=== PATIENT | female | born 1985 | race Caucasian/White ===

== ENCOUNTER → 2018-08-28 | Outpatient (CLI) | payer BC ==
[2018-08-28 11:23] LABS: Glucose 3 Hour, Gest 63 mg/dL
== END | disposition home or self-care (01) ==
LOC: LABWHC1 07:23
PROVIDERS: ATTEND Obstetrics & Gynecology
DX: O99.810 Abnormal glucose complicating pregnancy (principal); Z3A.00 Weeks of gestation of pregnancy not specified
CPT/HCPCS: 36415; 82951; 82952

== ENCOUNTER 2018-09-24 15:54 | Outpatient (CLI) | payer BC ==
[2018-09-24 17:07] LABS: Appearance,Urine Clear (Clear); Bilirubin,Urine Negative (Negative); Blood,Urine Negative (Negative); Color,Urine Light Yellow; Glucose,Urine (UA) Negative (Negative); Ketones,Urine Trace (Negative); Leukocyte Esterase,Urine Negative (Negative); Nitrite,Urine Negative (Negative); PH, Urine 6.5 (5.0-8.0); Protein,Urine Negative (Negative); Specific Gravity,Urine 1.007 (1.001-1.035); Urobilinogen,Urine <2.0 mg/dL (<2.0)
[2018-09-24 20:01] VITALS: BP 134/77; PULSE 105; RESP 16; TEMP 97.8
--- NOTE | 2018-10-22 09:16 | P.MSEPDOC ---
Presenting Problems - Arrival Data Date of Arrival on Unit: 09/24/18 Time of Arrival on Unit: 16:00 Mode of Transport: Ambulatory - Complaint OB-Reason for Admission/Chief Complaint: Possible Onset of Labor Comment: hx of previous c/s Medical History - Information : 2 Para: 1 Term: 1 : 0 Abortions: Spontaneous or Elective: 0 Number of Living Children: 1 - Gestational Age Gestational Age by CHERRY (wks/days): 32 Weeks and 2 Days Review of Systems - Review of Systems Constitutional: No problems Breast: No problems ENT: No problems Cardiovascular: No problems Respiratory: No problems Gastrointestinal: No problems Genitourinary: No problems Musculoskeletal: No problems Neurological: No problems Skin: No problems Vital Signs - Temperature Temperature: 97.8 F Temperature Source: Temporal Artery Scan - Pulse Right Apical Pulse Rate: 105 Pulse Assessment Method: Auscultation - Respirations Respiratory Rate: 16 Oxygen Delivery Method: Room Air - Blood Pressure Right Arm Blood Pressure: 134/77 Blood Pressure Mean: 96 Blood Pressure Source: Automatic Cuff Medical Screen Scoring (Pre) - Cervical Exam Dilation: 0 cm = 0 Effacement: Exam Deferred Membranes: Intact - Uterine Contractions Frequency: > 5 minutes apart = 1 Duration: N/A Intensity: N/A - Maternal Vital Signs Maternal Temperature: N/A Maternal Blood Pressure: N/A Signs of Preeclampsia: N/A - Pain Assessment Pain Location and Character: Lower, Abdomen Pain Scale Used: Numeric (1 - 10) Pain Intensity: 6 Pain Description: Cramping, Pressure Pain Frequency: Intermittent - Assessment Baseline FHR: 140 Heart Rate - NICHD Category: Category I (Normal) = 0 NST: Reactive Position: N/A Station: N/A - Total Score Total Score (Pre): 1 Physician Notification (Pre) - Physician Notified Physician Notified Date: 09/24/18 Physician Notified Time: 17:15 Physician/Practitioner Notifed:: hung New Order Received: Yes Disposition - Disposition OB Disposition: Physician follow up in office, Discharge to home, Written follow up instructions reviewed Discharge Date: 09/24/18 Discharge Time: 17:38 I agree with the RN Medical Screening Exam: Yes Risk & Benefit of care provided described in d/c instruction: Yes Diagnosis: FALSE LABOR BEFORE 37 COMPLETED WEEKS OF GEST, THIRD TRI
== END 2018-09-24 17:35 | disposition home or self-care (01) ==
LOC: FBPOP 15:54
PROVIDERS: ATTEND Obstetrics & Gynecology
DX: O47.03 False labor before 37 completed weeks of gestation, third trimester (principal); Z3A.32 32 weeks gestation of pregnancy
CPT/HCPCS: 59025; 81003; 99213

== ENCOUNTER 2018-11-12 08:47 | Inpatient (IN) | payer BC, OTHER ==
[2018-11-08 16:02] VITALS: BMI 31.9
[2018-11-12] MEDS ORDERED: LIDOCAINE 0.5% (PF) 5 MG/ML (50 ML SDV) SQ PRN (10:12)
[2018-11-12] MEDS ORDERED: OXYTOCIN 10 UNIT/ML 1 ML VIAL IM PRN (10:12)
[2018-11-12] MEDS ORDERED: TERBUTALINE 1 MG/ML VIAL SQ PRN (10:12)
[2018-11-12] MEDS ORDERED: ceFAZolin IN SWFI 2 GM/20 ML SYRINGE IVP ONE (10:12)
[2018-11-12] MEDS ORDERED: CARBOPROST TROMETHAMINE 250 MCG/ML 1 ML AMP IM PRN (10:12)
[2018-11-12] MEDS ORDERED: METHYLERGONOVINE 0.2 MG/ML 1 ML AMP IM PRN (10:12)
[2018-11-12] MEDS ORDERED: CITRIC ACID-SODIUM CITRATE 15 ML CUP PO ONE (10:40)
[2018-11-12] MEDS: LACTATED RINGERS 1,000 ML IV SCH ×2 (10:41→14:56)
[2018-11-12 11:02] LABS: Basophils # (A) 0.1 k/uL (0-0.2); Basophils % (A) 1 %; Eosinophils # (A) 0.1 k/uL (0-0.7); Eosinophils % (A) 1 %; HCT 38.3 % (34.0-46.0); HGB 12.6 gm/dL (11.4-16.0); Lymphocytes # (A) 2.1 k/uL (1.0-4.8); Lymphocytes % (A) 20 %; MCH 27.4 pg (25.0-35.0); MCHC 32.8 g/dL (31.0-37.0); MCV 83.3 fL (80.0-100.0); Mean Platelet Volume 7.5; Monocytes # (A) 0.4 k/uL (0-1.0); Monocytes % (A) 3 %; Neutrophils # (A) 7.7 k/uL (1.3-7.7); Neutrophils % (A) 74 %; Platelet Count 273 k/uL (150-450); RBC 4.59 m/uL (3.80-5.40); RDW 15.6 % (11.5-15.5); WBC 10.5 k/uL (3.8-10.6)
[2018-11-12] MEDS ORDERED: ePHEDrine SULFATE/0.9% NACL/PF 50 MG/5 ML SYRINGE IV ONE (11:36)
[2018-11-12] MEDS ORDERED: NALBUPHINE 10 MG/ML (1 ML AMP) ONE (11:36)
[2018-11-12] MEDS ORDERED: MORPHINE SULFATE (PF) 0.3 MG/0.3 ML SYR ONE (11:36)
[2018-11-12] MEDS ORDERED: DEXAMETHASONE SOD PHOS (MDV) 100 MG/10 ML VIAL ONE (11:36)
[2018-11-12] MEDS ORDERED: ONDANSETRON 4 MG/2 ML VIAL ONE (11:36)
[2018-11-12] MEDS ORDERED: OXYTOCIN 10 UNIT/ML 1 ML VIAL ONE (11:36)
[2018-11-12] MEDS ORDERED: LACTATED RINGERS 1,000 ML BAG IV ONE (11:36)
[2018-11-12] MEDS ORDERED: KETOROLAC 30 MG/ML 1 ML VIAL ONE (11:36)
--- NOTE | 2018-11-12 11:45 | P.HPOB ---
History of Present Illness H&P Date: 11/12/18 Chief Complaint: Here for elective repeat section, and tubal ligation. This is a 34-year-old white female 3 para 1011 EDC 11/17/2018 at 39-2/7 weeks' gestation. Patient presents today for repeat low transverse section and tubal ligation. She has been offered the option of and declined. Fetus is been active throughout the . She denies fluid leakage or vaginal bleeding, no uterine contractions. Past medical history is significant for -induced hypertension with the prior . Blood pressure is normal at this time. Past surgical history bunionectomy, section for failure to progress in the past, D&C, tonsillectomy. Current medications vitamins daily. ALLERGIES none known. Family history significant for diabetes. Social history patient is a former smoker of tobacco, denies alcohol or drug use. She is now . They're of the baby is present and participating. Obstetric history blood type is O+, rubella status immune. VDRL testing, urine culture, hepatitis B surface antigen, HIV testing, gonorrhea and chlamydia cultures all negative. Group B strep cultures negative. One-hour Glucola 145, three-hour GTT within normal limits. On exam this is a pleasant white female who is 5 foot 5 inches, approximately 200 pounds, vital signs are stable and she is afebrile. The general physical exam is within normal limits. The extremities reveal trace edema. Abdomen is obviously gravid, fundal height 37 cm, vertex presentation by Shad's maneuvers. Cervix is long thick and closed. heart rate is consistent with reactive NST. Impression: 39-2/7 weeks intrauterine , here for repeat low transverse section and tubal ligation. Patient declining option of . All signs at this time reassuring. Plan: We'll proceed with repeat low transverse section with tubal ligation utilizing Filshie clips. The risks benefits and alternatives of this plan have been discussed with the patient in detail and she has voiced complete understanding. Review of Systems Constitutional: Reports as per HPI Past Medical History Past Medical History: No Reported History Additional Past Medical History / Comment(s): hx of heart murmur History of Any Multi-Drug Resistant Organisms: None Reported Past Surgical History: Adenoidectomy, Section, Orthopedic Surgery, Tonsillectomy Additional Past Surgical History / Comment(s): bunion sx bernardo feet Past Anesthesia/Blood Transfusion Reactions: No Reported Reaction Past Psychological History: No Psychological Hx Reported Smoking Status: Former smoker Past Alcohol Use History: None Reported Additional Past Alcohol Use History / Comment(s): smoked pre- less than 1/2ppd from teens Past Drug Use History: None Reported - Past Family History Mother History Unknown: Yes Family Medical History: Diabetes Mellitus Medications and Allergies Home Medications Medication Instructions Recorded Confirmed Type Pnv,Calcium 72/Iron/Folic Acid 1 each PO DAILY 09/24/18 11/12/18 History [ Plus Tablet] Allergies Allergy/AdvReac Type Severity Reaction Status Date / Time adhesive AdvReac Rash/Hives Verified 11/12/18 10:11 Exam Vital Signs Temp Pulse Resp BP Pulse Ox 11/12/18 10:10 97.3 F L 101 H 16 134/83 96 See dictation under HPI please Results Result Diagrams: 11/12/18 10:20 Abnormal Lab Results - Last 24 Hours (Table) 11/12/18 Range/Units 10:20 RDW 15.6 H (11.5-15.5) % Assessment and Plan Assessment: 39-2/7 weeks intrauterine , here for repeat low transverse section and tubal ligation. Plan: We will proceed as above. Anesthesia and nursing staff present and aware. All questions answered. Time with Patient: Less than 30
[2018-11-12] MEDS ORDERED: ZOLPIDEM 5 MG TAB PO PRN (12:30)
[2018-11-12] MEDS ORDERED: METOCLOPRAMIDE 5 MG/ML 2 ML VIAL IVP PRN (12:30)
[2018-11-12] MEDS ORDERED: NALOXONE 0.4 MG/ML 1 ML VIAL IV PRN (12:30)
[2018-11-12] MEDS ORDERED: diphenhydrAMINE 50 MG/ML 1 ML VIAL IVP PRN ×2 (12:30)
[2018-11-12] MEDS ORDERED: diphenhydrAMINE 50 MG CAP PO PRN (12:30)
[2018-11-12] MEDS ORDERED: ACETAMINOPHEN TAB 325 MG TAB PO PRN (12:30)
[2018-11-12] MEDS ORDERED: HYDROcodone/APAP 5-325MG 1 EACH TAB PO PRN (12:30)
[2018-11-12] MEDS ORDERED: SIMETHICONE 80 MG CHEWABLE PO PRN (12:30)
[2018-11-12] MEDS ORDERED: LACTATED RINGERS 1,000 ML IV SCH (12:30)
[2018-11-12] MEDS ORDERED: diphenhydrAMINE 25 MG CAP PO PRN (12:30)
[2018-11-12] MEDS ORDERED: ONDANSETRON 4 MG/2 ML VIAL IVP PRN (12:30)
--- NOTE | 2018-11-12 12:31 | P.OP ---
Date of Procedure: 11/12/18 Preoperative Diagnosis: 39-2/7 weeks intrauterine , previous section declining , undesired fertility Postoperative Diagnosis: Same. Very thin lower uterine segment. Nuchal cord 1. Liveborn female infant. Procedure(s) Performed: Repeat low transverse section, tubal ligation with Filshie clips Anesthesia: spinal Surgeon: Reba Nix Fixer Boarding Room #1: Shreyas Baldwin Estimated Blood Loss (ml): 600 IV fluids (ml): 1,400 Urine output (ml): 200 Pathology: none sent Condition: stable Disposition: PACU Description of Procedure: Patient is brought to the operating room where a spinal analgesia is administered without difficulty. She's placed in the dorsal supine position, with left lateral uterine displacement. Antibiotics have been given. The appropriate timeout was performed to assure proper patient and procedural identification. The abdomen is prepped and draped in usual sterile fashion. Analgesia is checked and noted to be adequate. A repeat low transverse skin incision is made in this is carried down through the subcutaneous tissue which is approximately 2 cm in depth. Fascia is isolated, scored, and extended bilaterally with curved Chu scissors. The peritoneum is entered. The bladder is noted to be high on the lower uterine segment, this was carefully taken down with Metzenbaum scissors. Bladder flap is placed over the dome of the bladder, and all times the bladder is Well from the operative field to avoid bladder and/or ureteral injury. The lower uterine segment is extremely thin, hair continue seen through the incision floating in the fluid. A scalpel is used in a repeat low transverse uterine incision is made. Fluid was clear. Infant's head is delivered occiput anterior. There was a nuchal cord 1 that was easily reduced. The oropharynx, nasopharynx, and external nares are all bulb suctioned on the perineal body. Patient is officially delivered of a liveborn female at 1156 hrs. Umbilical cord is doubly clamped and ligated, she is handed to waiting nurses for evaluation where scores of 9 and 10 at one and 5 minutes respectively are given. Cord blood is sent to the lab for evaluation. Placenta is delivered manually, it is inspected and noted to be intact with trivascular cord at 1157 hours. The uterus is then massaged and oxytocin is given. Uterus is externalized and swept clean with a sterile s ponge to avoid any retained products of conception. The uterus is closed in one-step full-thickness fashion for excellent reapproximation. Bilateral tubes and ovaries are normal to inspection. Filshie clips are placed in the isthmic portion of both tubes, with care to traverse the entire diameter of the tubes into the mesal salpinx. The abdomen was suctioned with guard. Uterus is gently placed back into the abdominal cavity. Bilateral gutters are inspected and cleaned. Peritoneum is allowed to close by secondary intention. Fascia is closed in a running stitch of 0 Vicryl with over ligation in the midline. Subcutaneous tissue is irrigated, noted to be clean and dry. It is reapproximated with 2-0 Vicryl in a running fashion. 4-0 undyed Monocryl issues for final subcuticular closure of the skin. Mastisol and Steri-Strips are applied. Dressing is applied. Uterus is massaged for a small amount of lochia.. Pad is placed. Urine is noted to be clear in the Zamarripa tube as well as bag. All sponge needle and enhancement counts are correct. Patient is brought back to the recovery room in very good condition with stable vital signs including blood pressure 100/60, pulse 90, 98% O2 saturation.
[2018-11-12] MEDS: KETOROLAC 30 MG/ML 1 ML VIAL IVP PRN (20:33)
[2018-11-12] MEDS: SENNOSIDES-DOCUSATE SODIUM 1 EACH TAB PO SCH (22:24)
[2018-11-13] MEDS: KETOROLAC 30 MG/ML 1 ML VIAL IVP PRN (05:21)
[2018-11-13] MEDS: LACTATED RINGERS 1,000 ML IV SCH ×2 (05:29→17:37)
[2018-11-13 07:27] LABS: Basophils % (A) 0 %; Eosinophils # (A) 0.1 k/uL (0-0.7); Eosinophils % (A) 1 %; HCT 32.5 % (34.0-46.0); HGB 10.5 gm/dL (11.4-16.0); Lymphocytes # (A) 2.5 k/uL (1.0-4.8); Lymphocytes % (A) 18 %; MCH 27.5 pg (25.0-35.0); MCHC 32.3 g/dL (31.0-37.0); MCV 85.3 fL (80.0-100.0); Mean Platelet Volume 7.2; Monocytes # (A) 0.7 k/uL (0-1.0); Monocytes % (A) 5 %; Neutrophils # (A) 9.9 k/uL (1.3-7.7); Neutrophils % (A) 74 %; Platelet Count 253 k/uL (150-450); RBC 3.81 m/uL (3.80-5.40); RDW 15.2 % (11.5-15.5); WBC 13.3 k/uL (3.8-10.6)
[2018-11-13] MEDS: SENNOSIDES-DOCUSATE SODIUM 1 EACH TAB PO SCH ×2 (08:58→21:19)
--- NOTE | 2018-11-13 09:14 | P.PN ---
Subjective Progress Note Date: 11/13/18 Principal diagnosis: Postoperative day #1 Positive flatus, minimal to moderate lochia, no complaints. Objective - Vital Signs Vital signs: Vital Signs Temp 98.3 F 11/13/18 08:00 Pulse 78 11/13/18 08:00 Resp 16 11/13/18 08:00 BP 113/65 11/13/18 08:00 Pulse Ox 97 11/13/18 08:00 Intake & Output 11/12/18 11/13/18 11/13/18 18:59 06:59 18:59 Intake Total 2500 Output Total 2100 1000 Balance 400 -1000 Intake: IV 1400 Intake, IV Titration 600 Amount Lactated Ringers 1,000 ml 600 @ 125 mls/hr IV .Q8H BEATRIZ Rx#:[id number] Oral 500 Blood Product 0 Output: Urine 1500 1000 Uretheral (Zamarripa) 1000 Emesis 0 Estimated Blood Loss 600 Other: # Voids 1 1 - Constitutional General appearance: Present: average body habitus, cooperative - EENT Eyes: Present: PERRLA ENT: Present: hearing grossly normal - Respiratory Respiratory: bilateral: CTA - Cardiovascular Rhythm: regular - Gastrointestinal Gastrointestinal Comment(s): Uterus firm, midline, symmetric, 18 week size. Incision clean and dry, intact, Steri-Strips applied. General gastrointestinal: Present: normal bowel sounds - Neurologic Neurologic: Present: CNII-XII intact - Musculoskeletal Musculoskeletal: Present: gait normal, strength equal bilaterally - Psychiatric Psychiatric: Present: A&O x's 3, appropriate affect, intact judgment & insight - Labs CBC & Chem 7: 11/13/18 06:45 Labs: Abnormal Lab Results - Last 24 Hours (Table) 11/12/18 11/13/18 Range/Units 10:20 06:45 WBC 13.3 H (3.8-10.6) k/uL Hgb 10.5 L (11.4-16.0) gm/dL Hct 32.5 L (34.0-46.0) % RDW 15.6 H (11.5-15.5) % Neutrophils # 9.9 H (1.3-7.7) k/uL Assessment and Plan Assessment: Postoperative day #1. Doing well. Plan: Advance diet and activity. May discontinue IV. May shower. Likely discharge home tomorrow. Time with Patient: Less than 30
--- NOTE | 2018-11-13 10:00 | P.PN ---
Progress Note - Text Date:11/13 Time:640 Patient is status post . Patient seen this morning with VAS score of 2. c/o mild pruritus, no c/o nausea/vomiting, comfortable and doing well.
[2018-11-13] MEDS: IBUPROFEN 600 MG TAB PO PRN (17:29)
[2018-11-14] MEDS: LACTATED RINGERS 1,000 ML IV SCH (06:40)
[2018-11-14 09:31] VITALS: BP 111/74; PULSE 86; RESP 20; TEMP 98.5
[2018-11-14] MEDS: IBUPROFEN 600 MG TAB PO PRN (09:40)
[2018-11-14] MEDS: SENNOSIDES-DOCUSATE SODIUM 1 EACH TAB PO SCH (09:41)
--- NOTE | 2018-11-14 10:01 | P.DS ---
Providers Date of admission: 11/12/18 09:55 Expected date of discharge: 11/14/18 Attending physician: Reba Nix Primary care physician: Stated None Hospital Course: This is a 33-year-old white female 3 para 1011 EDC 11/17/2018 at 39-2/7 weeks' gestation. Patient presented for repeat scheduled low transverse section and tubal ligation. She did well, gave to a liveborn female infant with scores of 9 and 10 at one and 5 minutes respectively. Estimated blood loss recorded of 600 mL's. weighed 7 lbs. 14 oz. or 3560 g. Please see dictated operative note for details. Postoperatively the patient has done well. She is voiding, ambulating and passing flatus without difficulty. Vital signs are stable and she is afebrile. Fundus is firm and in the midline, symmetric and 18 week size. Extremities are negative for edema. Breast-feeding is going well. Breasts are not engorged. baby is doing well and has been discharged home per the pediatric team. Patient herself is judged to be in very good condition for discharge home. She will follow-up in the office with me in 2 weeks. She will use [id number] medications as needed for pain, Advil or Aleve, ibuprofen pills, 3 every 6 hours as needed. She will call with any fevers shakes or chills, foul smelling or copious lochia, with the passage of large blood clots, with any pain by [id number]-[id number] medications, or any questions. infant will follow-up with piece presser as per recommendations. Patient Condition at Discharge: Good Plan - Discharge Summary Discharge Rx Participant: No New Discharge Prescriptions: No Action Pnv,Calcium 72/Iron/Folic Acid [ Plus Tablet] 1 each PO DAILY Discharge Medication List Pnv,Calcium 72/Iron/Folic Acid [ Plus Tablet] 1 each PO DAILY 09/24/18 [History] Follow up Appointment(s)/Referral(s): Reba Nix MD [STAFF PHYSICIAN] - 2 Weeks
== END 2018-11-14 11:45 | disposition home or self-care (01) | DRG 783 ==
LOC: 4FBP 09:55 → 6PED 11-13 17:15
PROVIDERS: ADMIT Obstetrics & Gynecology; ATTEND Obstetrics & Gynecology
PROC: 0UL70CZ Occlusion of Bilateral Fallopian Tubes with Extraluminal Device, Open Approach (ICD-10-PCS; 2018-11-12)
PROC: 10D00Z1 Extraction of Products of Conception, Low, Open Approach (ICD-10-PCS; principal; 2018-11-12 12:00)
DX: O34.211 Maternal care for low transverse scar from previous cesarean delivery (principal); O99.42 Diseases of the circulatory system complicating childbirth; O69.81X0 Labor and delivery complicated by cord around neck, without compression, not applicable or unspecified; I99.8 Other disorder of circulatory system; R01.1 Cardiac murmur, unspecified; Z30.2 Encounter for sterilization; Z37.0 Single live birth; Z3A.39 39 weeks gestation of pregnancy; Z87.891 Personal history of nicotine dependence; Z83.3 Family history of diabetes mellitus
CPT/HCPCS: 85025; 86850; 86900; 86901